=== PATIENT | male | born 1965 | race Caucasian/White ===

== ENCOUNTER 2019-07-05 10:56 | Emergency (ER) | payer BC, OTHER ==
[~2019-07-05] VITALS: Ht 175.3 cm; Wt 53.1 kg
--- OUTSIDE RECORDS SUMMARY | 2019-07-05 10:59 | XMS REPORT ---
[facility] Address Unknown Phone Unavailable Care Team Providers Care Urinalysis Technician Name Role Phone Unavailable Unavailable Payers Payer Name Policy Type Policy Number Effective Date Expiration Date Problems This patient has no known problems. Allergies, Adverse Reactions, Alerts Allergy Name Allergy Type Status Severity Reaction(s) Onset Date Inactive Date Treating Clinician Comments No Known Allergies DA Active U 2016-07-12 00:00:00 Medications This patient has no known medications. Results Test Description Test Time Test Comments Text Results Atomic Results Result Comments - CT ABD PELVIS W WO CONT 2019-04-23 15:27:00 Name: KVNG KABA [facility] : 1965 Age/S: 53 / M [address] [facility] Unit #: [id number] Loc: [place] [address] Phys: Apolinar Dumont MD Acct: [id number] Dis Date: Status: REG CLI PHONE #: [phone] Exam Date: 04/23/2019 1030 FAX #: [phone] Reason: CONSTIPATION EXAMS: CPT CODE: [id number] CT ABD PELVIS W WO CONT [id number] REASON FOR EXAM: CONSTIPATION EXAM ORDER DATE: 04/23/2019 9:46 AM Ordering M.D.: Apolinar Dumont MD PROCEDURE: - CT ABD PELVIS W WO CONT pre and postcontrast axial CT images were acquired through the abdomen/pelvis at 5 mm intervals. Sagittal and coronal reformatted images were generated. Automated exposure control was utilized for this reduction. Phases of contrast: venous and delayed COMPARISON: None FINDINGS: Visualized thorax: Pectus excavatum. Lung bases are clear. Hepatobiliary system: Normal Pancreas: Normal Spleen: Normal Adrenal glands: Normal Genitourinary system: There are stones in the bilateral kidneys, more numerous on the right side. The largest stone is located in the upper pole of the right kidney and measures up to 5 cm in size (2/33). No evidence of hydronephrosis or hydroureter or ureterolithiasis. Symmetric renal enhancement with no perinephric or periureteral inflammatory changes. Otherwise normal Gastrointestinal tract and appendix: Heavy colonic stool burden compatible with constipation Abdominal vascular structures: Normal Peritoneum and retroperitoneum: No free fluid or free air. No omental or mesenteric masses. No abnormal lymph nodes. Musculoskeletal structures and abdominal wall: Normal IMPRESSION: PAGE 1 Signed Report (CONTINUED) Name: KVNG KABA [facility] : 1965 Age/S: 53 / M [address] [facility]: [id number] [place]: [place] [address] Phys: Apolinar Dumont MD Acct: [id number] Dis Date: Status: REG CLI PHONE #: [phone] Exam Date: 04/23/2019 1030 FAX #: [phone] Reason: CONSTIPATION EXAMS: CPT CODE: [id number] CT ABD PELVIS W WO CONT 12026 <Continued> Heavy colonic stool burden compatible with constipation. Nonobstructing stones in the bilateral kidneys, more numerous on the right side. Location: [facility] at 1527 Reported and signed by: Sunil Colon MD CC: Apolinar Dumont MD Technologist:RT Chandler(R),CT CTDI: DLP: Trnscb Date/Time: 04/23/2019 (1527) [email or web address] Orig Print D/T: S: 04/23/2019 (1530) PAGE 2 Signed Report
[2019-07-05] MEDS ORDERED: SODIUM CHLORIDE 0.9% 1000ML 1,000 ML IV STA (11:13)
[2019-07-05] MEDS ORDERED: KETOROLAC TROMETHAMINE 30 MG/ML VIAL IV STA (11:13)
[2019-07-05 11:51] LABS: BASOPHILS % 0.6 % (0.0-1.0); EOSINOPHILS % 0.5 % (0.0-6.0); HEMATOCRIT 42.3 % (38.2-49.6); HEMOGLOBIN 13.9 g/dL (14.0-18.0); LYMPHOCYTES # (AUTO) 1.1 (1.0-3.2); LYMPHOCYTES % 17.4 % (18.0-39.1); MEAN CORPUSCULAR HEMOGLOBIN 30.2 pg (28-32); MEAN CORPUSCULAR HGB CONC 32.9 g/dL (31-35); MONOCYTES # (AUTO) 0.4 (0.2-0.8); MONOCYTES % 6.1 % (4.4-11.3); NEUTROPHILS # (AUTO) 4.8 (2.1-6.9); NEUTROPHILS % 75.1 % (38.7-80.0); PLATELET COUNT 185 x10e3/uL (140-360); RED CELL DISTRIBUTION WIDTH 12.8 % (11.7-14.4)
[2019-07-05 12:14] LABS: ALANINE AMINOTRANSFERASE 15 IU/L (0-55); ALBUMIN 4.1 g/dL (3.5-5.0); ALBUMIN/GLOBULIN RATIO 1.5 (0.8-2.0); ALKALINE PHOSPHATASE 64 IU/L (40-150); ANION GAP 13.8 mmol/L (8-16); BLOOD UREA NITROGEN 18 mg/dL (7-26); BUN/CREATININE RATIO 21 (6-25); CALCIUM 9.3 mg/dL (8.4-10.2); CARBON DIOXIDE 28 mmol/L (22-29); CHLORIDE 104 mmol/L (98-107); CREATININE, SERUM 0.84 mg/dL (0.72-1.25); EST GLOMERULAR FILTRATION RATE > 60 ML/MIN (60-); GLUCOSE 93 mg/dL (74-118); POTASSIUM 3.8 mmol/L (3.5-5.1); SODIUM 142 mmol/L (136-145)
[2019-07-05 12:39] LABS: COLOR,URINE YELLOW (YELLOW)
[2019-07-05 12:40] LABS: BILIRUBIN,URINE NEGATIVE (NEGATIVE); CLARITY,URINE CLEAR (CLEAR); KETONES,URINE NEGATIVE (NEGATIVE); LEUKOCYTE ESTERASE ,URINE NEGATIVE (NEGATIVE); NITRITE,URINE NEGATIVE (NEGATIVE); PROTEIN,URINE DIPSTICK NEGATIVE (NEGATIVE); RBC,URINE 0-5 /HPF (0-5); URINE UROBILINOGEN 0.2 mg/dL (0.2 - 1); WBC,URINE (MAN) 0-5 /HPF (0-5)
[2019-07-05 12:41] LABS: BACTERIA,URINE RARE /HPF; EPITHELIAL CELLS,URINE FEW /LPF
--- NOTE | 2019-07-05 13:23 | Diagnostic Imaging Report ---
INDICATION: Left flank pain. COMPARISON: None. TECHNIQUE: CT of the Abdomen and Pelvis WITHOUT intravenous contrast. Enteric contrast was not used. The exam was performed according to our department dose-optimization protocol, which includes automated exposure control, adjustments of mA and kV according to patient size. Iterative reconstructions are also sometimes employed. FINDINGS: In the right kidney there are 2 small calyceal stones. No left kidney stones are demonstrated and no ureteral stones. No perinephric stranding or hydronephrosis. Kidneys are normal in size and there is no gross renal mass. Bladder is partly collapsed and therefore not well evaluated. Prostate gland mildly enlarged with coarse calcifications of the central gland. There is increase in stool burden throughout the colon. No bowel obstruction demonstrated. No evidence of bowel infection. Liver, gallbladder, pancreas, spleen, and adrenal glands are unremarkable. Left iliac subcentimeter sclerotic lesion is probably benign. No definite suspicious osseous lesion. Lower thorax unremarkable IMPRESSION: Small right kidney stones. No obstructing urolithiasis. Constipation. Signed by: Shade Pathak MD on 07/05/2019 1:20 PM
== END 2019-07-05 14:11 | disposition home or self-care (01) ==
LOC: ER 10:56
DX: K59.00 Constipation, unspecified (principal); M54.5 Low back pain
CPT/HCPCS: 36415; 74176; 80053; 81001; 85025; 87086; 99284; J1885; J7030

== ENCOUNTER → 2020-03-10 | Day surgery (SDC) | payer BC, OTHER ==
[~2020-03-10] VITALS: Ht 180.3 cm; Wt 68.0 kg
[~2020-03-10] MED LIST: FENTANYL CITRATE/PF 100MCG/2 ML INJ ONE; LIDOCAINE HCL 2% LOCAL INJ 5 ML SDV VIAL INJ ONE; MIDAZOLAM HCL 2 MG/2 ML VIAL ONE; MIRALAX17 GM PO; PROPOFOL IV EMULSION 10 MG/ML 20 ML VIAL ONE; STOOL SOFTENER100 MG
[2020-03-10 07:45] VITALS: BP 120/74
== END | disposition home or self-care (01) ==
LOC: OR 05:32
PROVIDERS: ATTEND Internal Medicine Gastroenterology
DX: R63.4 Abnormal weight loss (principal); K29.50 Unspecified chronic gastritis without bleeding; K20.90 Esophagitis, unspecified without bleeding; K44.9 Diaphragmatic hernia without obstruction or gangrene; I45.10 Unspecified right bundle-branch block; Z01.810 Encounter for preprocedural cardiovascular examination; Z01.812 Encounter for preprocedural laboratory examination; Z11.59 Encounter for screening for other viral diseases; Z68.1 Body mass index [BMI] 19.9 or less, adult
CPT/HCPCS: 43239; 93005; J2001; J2250; J2704; J3010; U0002

== ENCOUNTER 2023-09-10 20:27 | Emergency (ER) | payer SELFPAY ==
[~2023-09-10] VITALS: Ht 175.3 cm; Wt 54.4 kg
[~2023-09-10 20:27] MED LIST changes: -FENTANYL CITRATE/PF 100MCG/2 ML INJ ONE; -LIDOCAINE HCL 2% LOCAL INJ 5 ML SDV VIAL INJ ONE; -MIDAZOLAM HCL 2 MG/2 ML VIAL ONE; -PROPOFOL IV EMULSION 10 MG/ML 20 ML VIAL ONE; +SODIUM CHLORIDE 0.9% 1000 ML BAG ONE
[2023-09-10] MEDS: SODIUM CHLORIDE 0.9% 1000ML 1,000 ML IV STA (20:49)
[2023-09-10 20:56] LABS: BASOPHILS # (AUTO) 0.1 (0.0-0.1); BASOPHILS % 0.9 % (0.0-1.0); EOSINOPHILS # (AUTO) 0.1 (0.0-0.4); EOSINOPHILS % 1.6 % (0.0-6.0); HEMATOCRIT 38.9 % (38.2-49.6); HEMOGLOBIN 13.7 g/dL (14.0-18.0); LYMPHOCYTES % 26.8 % (18.0-39.1); MEAN CORPUSCULAR HGB CONC 35.2 g/dL (31-35); MONOCYTES # (AUTO) 0.4 (0.2-0.8); MONOCYTES % 5.8 % (4.4-11.3); NEUTROPHILS # (AUTO) 4.9 (2.1-6.9); NEUTROPHILS % 64.8 % (38.7-80.0); PLATELET COUNT 186 x10e3/uL (140-360); RED BLOOD COUNT 4.42 x10e6/uL (4.3-5.7); RED CELL DISTRIBUTION WIDTH 12.5 % (11.7-14.4); WHITE BLOOD COUNT 7.53 x10e3/uL (4.8-10.8)
[2023-09-10] MEDS ORDERED: IOPAMIDOL 370 MG/ML 100 ML INFUS..BTL INJ ONE ×2 (21:00→21:33)
[2023-09-10] MEDS ORDERED: Sodium Chloride 0.9% 50ML Bag ONE ×2 (21:00→21:33)
[2023-09-10 21:03] LABS: BILIRUBIN,URINE NEGATIVE (NEGATIVE); CLARITY,URINE SL CLOUDY (CLEAR); COLOR,URINE YELLOW (YELLOW); GLUCOSE, URINE NEGATIVE (NEGATIVE); KETONES,URINE TRACE (NEGATIVE); LEUKOCYTE ESTERASE ,URINE NEGATIVE (NEGATIVE); NITRITE,URINE NEGATIVE (NEGATIVE); PH,URINE 6 (5 - 7); PROTEIN,URINE DIPSTICK NEGATIVE (NEGATIVE); URINE UROBILINOGEN 1 mg/dL (0.2 - 1)
[2023-09-10 21:15] LABS: ALANINE AMINOTRANSFERASE 14 IU/L (0-55); ALBUMIN/GLOBULIN RATIO 1.3 (0.8-2.0); ALKALINE PHOSPHATASE 64 IU/L (40-150); ANION GAP 17.1 mmol/L (8-16); BILIRUBIN,TOTAL 0.8 mg/dL (0.2-1.2); BLOOD UREA NITROGEN 24 mg/dL (7-26); BUN/CREATININE RATIO 27 (6-25); CARBON DIOXIDE 21 mmol/L (22-29); CHLORIDE 107 mmol/L (98-107); CREATINE KINASE 124 IU/L (30-200); EST GLOMERULAR FILTRATION RATE 98 ML/MIN (>=60); GLUCOSE 94 mg/dL (74-118); POTASSIUM 4.1 mmol/L (3.5-5.1); SODIUM 141 mmol/L (136-145); TOTAL PROTEIN 7.2 g/dL (6.5-8.1)
[2023-09-10 21:18] LABS: RBC,URINE 0-5 /HPF (0-5)
[2023-09-10 21:19] LABS: MUCUS,URINE FEW (RARE)
[2023-09-10 21:22] LABS: TROPONIN I < 0.001 ng/mL (0-0.300)
[2023-09-10 23:42] VITALS: BP 122/66; PULSE 60; RESP 17; TEMP 98.2; O2SAT 100
[2023-09-10 23:44] LABS: EOSINOPHILS % (MANUAL) 4 % (0-7); LYMPHOCYTES % (MANUAL) 26 % (19-48); MONOCYTES % (MANUAL) 5 % (3.4-9.0); NEUTROPHILS % (MANUAL) 65 % (40-74)
[2023-09-10 23:46] LABS: PLATELET MORPHOLOGY COMMENT NORMAL; RBC MORPHOLOGY COMMENT NORMAL
[2023-09-10 23:47] LABS: PLATELET ESTIMATE ADEQUATE
== END 2023-09-10 23:45 | disposition home or self-care (01) ==
LOC: ER 20:33
DX: R10.9 Unspecified abdominal pain (principal); K59.00 Constipation, unspecified; D18.09 Hemangioma of other sites; H91.3 Deaf nonspeaking, not elsewhere classified; K76.0 Fatty (change of) liver, not elsewhere classified; R94.31 Abnormal electrocardiogram [ECG] [EKG]
CPT/HCPCS: 36415; 74177; 80053; 81001; 82550; 83690; 84484; 85025; 93005; 99284; Q9967; J7030

== ENCOUNTER 2024-01-04 13:53 | Emergency (ER) | payer SELFPAY ==
[~2024-01-04] VITALS: Ht 175.3 cm; Wt 54.4 kg
[~2024-01-04 13:53] MED LIST changes: -SODIUM CHLORIDE 0.9% 1000 ML BAG ONE
[2024-01-04 14:27] LABS: BASOPHILS # (AUTO) 0.1 (0.0-0.1); BASOPHILS % 0.8 % (0.0-1.0); EOSINOPHILS # (AUTO) 0.1 (0.0-0.4); EOSINOPHILS % 0.8 % (0.0-6.0); HEMATOCRIT 43.9 % (38.2-49.6); HEMOGLOBIN 14.9 g/dL (14.0-18.0); LYMPHOCYTES # (AUTO) 1.4 (1.0-3.2); LYMPHOCYTES % 22.7 % (18.0-39.1); MEAN CORPUSCULAR HEMOGLOBIN 30.8 pg (28-32); MEAN CORPUSCULAR HGB CONC 33.9 g/dL (31-35); MEAN CORPUSCULAR VOLUME 90.7 fL (81-99); MONOCYTES # (AUTO) 0.5 (0.2-0.8); MONOCYTES % 7.4 % (4.4-11.3); NEUTROPHILS # (AUTO) 4.3 (2.1-6.9); NEUTROPHILS % 68.1 % (38.7-80.0); PLATELET COUNT 146 x10e3/uL (140-360); RED BLOOD COUNT 4.84 x10e6/uL (4.3-5.7); RED CELL DISTRIBUTION WIDTH 12.7 % (11.7-14.4); WHITE BLOOD COUNT 6.35 x10e3/uL (4.8-10.8)
[2024-01-04] MEDS: Morphine 4mg INJECTION 4 MG/ML INJ IV ONE (14:35)
[2024-01-04] MEDS: ONDANSETRON HCL INJ 2MG/ML 2ML 2 MG/ML VIAL IV STA (14:35)
[2024-01-04] MEDS: SODIUM CHLORIDE 0.9% 1000ML 1,000 ML IV ONE (14:36)
[2024-01-04 14:41] LABS: ALBUMIN 4.1 g/dL (3.5-5.0); ALBUMIN/GLOBULIN RATIO 1.3 (0.8-2.0); CALCIUM 9.3 mg/dL (8.4-10.2); CREATININE, SERUM 0.8 mg/dL (0.72-1.25); TOTAL PROTEIN 7.2 g/dL (6.5-8.1)
[2024-01-04] MEDS ORDERED: IOPAMIDOL 370 MG/ML 100 ML INFUS..BTL INJ ONE (15:01)
[2024-01-04 16:35] LABS: CLARITY,URINE CLEAR (CLEAR); COLOR,URINE YELLOW (YELLOW); LEUKOCYTE ESTERASE ,URINE NEGATIVE (NEGATIVE); NITRITE,URINE NEGATIVE (NEGATIVE); PH,URINE 7 (5 - 7)
[2024-01-04 16:36] LABS: BILIRUBIN,URINE NEGATIVE (NEGATIVE); GLUCOSE, URINE NEGATIVE (NEGATIVE); KETONES,URINE NEGATIVE (NEGATIVE); PROTEIN,URINE DIPSTICK NEGATIVE (NEGATIVE); URINE UROBILINOGEN 1 mg/dL (0.2 - 1)
[2024-01-04 16:47] LABS: MUCUS,URINE FEW (RARE); RBC,URINE 0-5 /HPF (0-5)
[2024-01-04 18:01] VITALS: PULSE 58; RESP 18; TEMP 98.5; O2SAT 100
== END 2024-01-04 18:24 | disposition home or self-care (01) ==
LOC: ER 13:59
DX: R10.31 Right lower quadrant pain (principal); K40.90 Unilateral inguinal hernia, without obstruction or gangrene, not specified as recurrent; N42.9 Disorder of prostate, unspecified; K76.0 Fatty (change of) liver, not elsewhere classified; H91.3 Deaf nonspeaking, not elsewhere classified
CPT/HCPCS: 36415; 74177; 80053; 81001; 83690; 85025; 99284; J2270; J2405; J7030; Q9967

== ENCOUNTER → 2024-07-02 | Day surgery (SDC) | payer BC, MEDICARE ==
[2024-06-29 13:57] LABS: BASOPHILS # (AUTO) 0.1 (0.0-0.1); BASOPHILS % 0.9 % (0.0-1.0); EOSINOPHILS # (AUTO) 0.1 (0.0-0.4); EOSINOPHILS % 0.9 % (0.0-6.0); HEMATOCRIT 44.8 % (38.2-49.6); HEMOGLOBIN 15.2 g/dL (14.0-18.0); LYMPHOCYTES # (AUTO) 1.5 (1.0-3.2); LYMPHOCYTES % 27.4 % (18.0-39.1); MEAN CORPUSCULAR HEMOGLOBIN 30.9 pg (28-32); MEAN CORPUSCULAR HGB CONC 33.9 g/dL (31-35); MEAN CORPUSCULAR VOLUME 91.1 fL (81-99); MONOCYTES # (AUTO) 0.5 (0.2-0.8); MONOCYTES % 9.3 % (4.4-11.3); NEUTROPHILS # (AUTO) 3.4 (2.1-6.9); NEUTROPHILS % 61.1 % (38.7-80.0); PLATELET COUNT 162 x10e3/uL (140-360); RED BLOOD COUNT 4.92 x10e6/uL (4.3-5.7); RED CELL DISTRIBUTION WIDTH 12.4 % (11.7-14.4); WHITE BLOOD COUNT 5.59 x10e3/uL (4.8-10.8)
[~2024-07-02] MED LIST changes: +DEXAMETHASONE SOD PHOS INJ 4 MG/ML SDV ONE; +EPHEDRINE SULFATE INJ 50 MG/ML VIAL ONE; +FENTANYL CITRATE/PF 100MCG/2 ML INJ ONE; +GLYCOPYRROLATE INJ 0.2 MG/ML VIAL ONE; +HYDROCODON-ACE1 EA11 PO; +LIDOCAINE HCL 2% LOCAL INJ 5 ML SDV VIAL INJ ONE; +ONDANSETRON HCL INJ 2MG/ML 2ML 2 MG/ML VIAL ONE; +PROPOFOL IV EMULSION 10 MG/ML 20 ML VIAL ONE; +SEVOFLURANE INHAL SOLN 250 ML PEN BTL ONE; +[UNRECOGNIZED DRUG - OTHER] PO
[2024-07-02] MEDS: LACTATED RINGER'S 1,000 ML ONE (11:53)
[2024-07-02] MEDS: CEFAZOLIN SODIUM 2 GM ONE (11:53)
[2024-07-02 13:11] LABS: ALBUMIN 3.8 g/dL (3.5-5.0); BILIRUBIN,DIRECT 0.5 mg/dL (0.0-0.5); BILIRUBIN,TOTAL 1.4 mg/dL (0.2-1.2); TOTAL PROTEIN 6.6 g/dL (6.5-8.1)
[2024-07-02 13:41] VITALS: TEMP 97
[2024-07-02 14:30] VITALS: BP 115/68; PULSE 70; RESP 16; O2SAT 98
[2024-07-02 14:31] LABS: ANION GAP 14.2 mmol/L (8-16); CALCIUM 8.9 mg/dL (8.4-10.2); CREATININE, SERUM 0.84 mg/dL (0.72-1.25); POTASSIUM 4.2 mmol/L (3.5-5.1)
[2024-07-02] MEDS: HYDROCODONE/APAP 5MG-325MG TAB ONE (14:45)
== END | disposition home or self-care (01) ==
LOC: OR 11:08
PROVIDERS: ATTEND Surgery
DX: K40.90 Unilateral inguinal hernia, without obstruction or gangrene, not specified as recurrent (principal); R00.1 Bradycardia, unspecified; M54.50 Low back pain, unspecified; H91.90 Unspecified hearing loss, unspecified ear; E66.3 Overweight; Z01.810 Encounter for preprocedural cardiovascular examination; Z01.812 Encounter for preprocedural laboratory examination
CPT/HCPCS: 36415 ×2; 49505; 80048; 80076; 85025; 93005; C1781; J1100; J2003; J2405; J2704; J3010; J7121

== ENCOUNTER 2024-07-14 14:10 | Emergency (ER) | payer MEDICARE ==
[~2024-07-14] VITALS: Ht 175.3 cm; Wt 54.0 kg
[~2024-07-14 14:10] MED LIST changes: -DEXAMETHASONE SOD PHOS INJ 4 MG/ML SDV ONE; -EPHEDRINE SULFATE INJ 50 MG/ML VIAL ONE; -FENTANYL CITRATE/PF 100MCG/2 ML INJ ONE; -GLYCOPYRROLATE INJ 0.2 MG/ML VIAL ONE; -LIDOCAINE HCL 2% LOCAL INJ 5 ML SDV VIAL INJ ONE; -ONDANSETRON HCL INJ 2MG/ML 2ML 2 MG/ML VIAL ONE; -PROPOFOL IV EMULSION 10 MG/ML 20 ML VIAL ONE; -SEVOFLURANE INHAL SOLN 250 ML PEN BTL ONE
[2024-07-14 15:17] VITALS: PULSE 72; RESP 18; TEMP 98.4; O2SAT 99
[2024-07-14] MEDS: ORPHENADRINE CITRATE 30 MG/ML VIAL IM ONE (15:45)
[2024-07-14] MEDS: KETOROLAC TROMETHAMINE 30 MG/ML VIAL IM STA (15:47)
[2024-07-14] MEDS ORDERED: METHOCARBAMOL750 MG PO (15:51)
== END 2024-07-14 16:07 | disposition home or self-care (01) ==
LOC: ER 15:52
DX: M54.50 Low back pain, unspecified (principal); M62.830 Muscle spasm of back; H91.3 Deaf nonspeaking, not elsewhere classified; Z98.890 Other specified postprocedural states; F17.210 Nicotine dependence, cigarettes, uncomplicated
CPT/HCPCS: 99283; J1885; J2360

== ENCOUNTER 2024-07-23 03:41 | Emergency (ER) | payer MEDICARE ==
[~2024-07-23] VITALS: Ht 175.3 cm; Wt 54.0 kg
[~2024-07-23 03:41] MED LIST changes: +METHOCARBAMOL750 MG PO
[2024-07-23] MEDS ORDERED: FLOMAX0.4 MG PO (05:08)
[2024-07-23 05:38] VITALS: PULSE 74; RESP 18; TEMP 98.1; O2SAT 98
[2024-07-23] MEDS: LIDOCAINE JELLY 2% 10ML URO-JET TOP ONE (05:38)
== END 2024-07-23 05:50 | disposition home or self-care (01) ==
LOC: ER 04:35
DX: N40.1 Benign prostatic hyperplasia with lower urinary tract symptoms (principal); R33.8 Other retention of urine; R10.30 Lower abdominal pain, unspecified; H91.3 Deaf nonspeaking, not elsewhere classified
CPT/HCPCS: 51700; 87086; 99283

== ENCOUNTER 2024-11-03 17:38 | Emergency (ER) | payer MEDICARE ==
[~2024-11-03] VITALS: Ht 175.3 cm; Wt 54.0 kg
[~2024-11-03 17:38] MED LIST changes: +FLOMAX0.4 MG PO
[2024-11-03 18:13] VITALS: PULSE 59; RESP 18; TEMP 98.5
[2024-11-03 18:21] LABS: BASOPHILS # (AUTO) 0.1 (0.0-0.1); BASOPHILS % 1.1 % (0.0-1.0); EOSINOPHILS # (AUTO) 0.1 (0.0-0.4); EOSINOPHILS % 1.4 % (0.0-6.0); HEMATOCRIT 42.4 % (38.2-49.6); HEMOGLOBIN 14.4 g/dL (14.0-18.0); LYMPHOCYTES # (AUTO) 1.7 (1.0-3.2); LYMPHOCYTES % 31.5 % (18.0-39.1); MEAN CORPUSCULAR HEMOGLOBIN 29.3 pg (28-32); MEAN CORPUSCULAR VOLUME 86.2 fL (81-99); MONOCYTES # (AUTO) 0.4 (0.2-0.8); MONOCYTES % 7.2 % (4.4-11.3); NEUTROPHILS # (AUTO) 3.2 (2.1-6.9); NEUTROPHILS % 58.6 % (38.7-80.0); PLATELET COUNT 184 x10e3/uL (140-360); RED BLOOD COUNT 4.92 x10e6/uL (4.3-5.7); WHITE BLOOD COUNT 5.53 x10e3/uL (4.8-10.8)
[2024-11-03 18:24] LABS: BILIRUBIN,URINE NEGATIVE (NEGATIVE); CLARITY,URINE HAZY (CLEAR); COLOR,URINE YELLOW (YELLOW); GLUCOSE, URINE NEGATIVE (NEGATIVE); KETONES,URINE NEGATIVE (NEGATIVE); LEUKOCYTE ESTERASE ,URINE TRACE (NEGATIVE); NITRITE,URINE POSITIVE (NEGATIVE); PH,URINE 6 (5 - 7); PROTEIN,URINE DIPSTICK 2+ (NEGATIVE); URINE UROBILINOGEN 1 mg/dL (0.2 - 1)
[2024-11-03] MEDS: ONDANSETRON HCL INJ 2MG/ML 2ML 2 MG/ML VIAL IV STA (18:31)
[2024-11-03 18:33] LABS: ALBUMIN/GLOBULIN RATIO 1.1 (0.8-2.0); ANION GAP 15.1 mmol/L (8-16); BILIRUBIN,TOTAL 1.3 mg/dL (0.2-1.2); CALCIUM 8.9 mg/dL (8.4-10.2); CREATININE, SERUM 0.86 mg/dL (0.72-1.25); POTASSIUM 4.1 mmol/L (3.5-5.1); TOTAL PROTEIN 7.6 g/dL (6.5-8.1)
[2024-11-03] MEDS: KETOROLAC TROMETHAMINE 30 MG/ML VIAL IV STA (18:33)
[2024-11-03] MEDS: SODIUM CHLORIDE 0.9% 1000ML 1,000 ML IV ONE (18:34)
[2024-11-03 18:35] LABS: BACTERIA,URINE MODERATE /HPF; CALCIUM OXALATE CRYSTALS,UR RARE (FEW); WBC,URINE (MAN) 0-5 /HPF (0-5)
[2024-11-03 18:37] LABS: URIC ACID CRYSTALS,URINE MODERATE
[2024-11-03] MEDS ORDERED: SODIUM CHLORIDE 0.9% 100 ML ONE (18:38)
[2024-11-03] MEDS ORDERED: IOPAMIDOL 370 MG/ML 100 ML INFUS..BTL INJ ONE (18:38)
[2024-11-03] MEDS ORDERED: CEFDINIR300 MG PO (19:47)
[2024-11-03] MEDS ORDERED: PYRIDIUM200 MG PO (19:47)
[2024-11-03 19:57] VITALS: BP 132/76; PULSE 65; RESP 17; TEMP 98.3; O2SAT 94
== END 2024-11-03 19:54 | disposition home or self-care (01) ==
LOC: ER 18:15
DX: R10.32 Left lower quadrant pain (principal); N39.0 Urinary tract infection, site not specified; H91.3 Deaf nonspeaking, not elsewhere classified
CPT/HCPCS: 36415; 74177; 80053; 81001; 85025; 87086; 87186; 99284; J1885; J2405; J7030; J7050; Q9967

== ENCOUNTER 2024-11-05 17:25 | Emergency (ER) | payer MEDICARE ==
[~2024-11-05] VITALS: Ht 175.3 cm; Wt 54.0 kg
[~2024-11-05 17:25] MED LIST changes: +CEFDINIR300 MG PO; +PYRIDIUM200 MG PO
[2024-11-05 17:44] VITALS: PULSE 79; RESP 16; TEMP 97.2; O2SAT 98
[2024-11-05] MEDS ORDERED: ONDANSETRON ODT4 MG PO (17:50)
[2024-11-05] MEDS ORDERED: ONDANSETRON HCL 4 MG ORAL DISINTEGRATING TAB PO ONE (18:00)
== END 2024-11-05 17:58 | disposition home or self-care (01) ==
LOC: ER 17:51
DX: R11.0 Nausea (principal); N39.0 Urinary tract infection, site not specified; H91.3 Deaf nonspeaking, not elsewhere classified
CPT/HCPCS: 99283; Q0162

== ENCOUNTER 2024-11-17 05:49 | Emergency (ER) | payer MEDICARE ==
[~2024-11-17] VITALS: Ht 175.3 cm; Wt 54.0 kg
[~2024-11-17 05:49] MED LIST changes: +ONDANSETRON ODT4 MG PO
[2024-11-17 05:59] VITALS: PULSE 57; RESP 16; TEMP 97.5
[2024-11-17] MEDS ORDERED: PYRIDIUM200 MG PO (06:55)
[2024-11-17] MEDS ORDERED: BACTRIM DS TAB1 EACH PO (06:55)
[2024-11-17 07:00] VITALS: BP 152/69; PULSE 60; RESP 18; TEMP 97.9; O2SAT 99
== END 2024-11-17 07:05 | disposition home or self-care (01) ==
LOC: ER 06:13
DX: Z46.6 Encounter for fitting and adjustment of urinary device (principal); R10.30 Lower abdominal pain, unspecified; H91.3 Deaf nonspeaking, not elsewhere classified
CPT/HCPCS: 51700; 87086; 99284

== ENCOUNTER 2024-12-05 12:46 | Emergency (ER) | payer MEDICARE ==
[~2024-12-05] VITALS: Ht 175.3 cm; Wt 54.0 kg
[~2024-12-05 12:46] MED LIST changes: +BACTRIM DS TAB1 EACH PO
[2024-12-05 13:13] VITALS: PULSE 74; RESP 18; TEMP 98.4
[2024-12-05] MEDS: LIDOCAINE JELLY 2% 10ML URO-JET TOP ONE (14:44)
[2024-12-05 15:13] VITALS: BP 128/76; PULSE 74; RESP 12; O2SAT 100
== END 2024-12-05 15:14 | disposition home or self-care (01) ==
LOC: ER 13:22
DX: Z46.6 Encounter for fitting and adjustment of urinary device (principal); N48.89 Other specified disorders of penis; H91.3 Deaf nonspeaking, not elsewhere classified
CPT/HCPCS: 99283

== ENCOUNTER 2024-12-12 09:27 | Emergency (ER) | payer MEDICARE ==
[~2024-12-12] VITALS: Ht 175.3 cm; Wt 54.0 kg
[2024-12-12 09:52] VITALS: RESP 18; TEMP 97.6
[2024-12-12 11:12] VITALS: PULSE 60; O2SAT 96
== END 2024-12-12 11:21 | disposition home or self-care (01) ==
LOC: ER 10:09
DX: Z46.6 Encounter for fitting and adjustment of urinary device (principal); R19.7 Diarrhea, unspecified; H91.3 Deaf nonspeaking, not elsewhere classified
CPT/HCPCS: 87086; 87186; 99283

== ENCOUNTER 2024-12-27 18:29 | Emergency (ER) | payer MEDICARE ==
[~2024-12-27] VITALS: Ht 175.3 cm; Wt 54.0 kg
[2024-12-27 18:50] VITALS: PULSE 73; RESP 16; TEMP 98
[2024-12-27] MEDS ORDERED: CIPRO500 MG PO (20:02)
[2024-12-27 20:13] LABS: LEUKOCYTE ESTERASE ,URINE MODERATE (NEGATIVE); PROTEIN,URINE DIPSTICK 2+ (NEGATIVE); URINE UROBILINOGEN 0.2 mg/dL (0.2 - 1)
[2024-12-27] MEDS: KETOROLAC TROMETHAMINE 60 MG/2 ML VIAL IM STA (20:38)
[2024-12-27 21:21] VITALS: BP 133/86; PULSE 80; RESP 17; TEMP 97.9; O2SAT 98
== END 2024-12-27 21:06 | disposition home or self-care (01) ==
LOC: ER 18:43
DX: T83.031A Leakage of indwelling urethral catheter, initial encounter (principal); N39.0 Urinary tract infection, site not specified; H91.90 Unspecified hearing loss, unspecified ear; N40.0 Benign prostatic hyperplasia without lower urinary tract symptoms
CPT/HCPCS: 51700; 81001; 87086; 99282; J1885

== ENCOUNTER 2025-01-12 22:48 | Emergency (ER) | payer MEDICARE ==
[~2025-01-12] VITALS: Ht 175.3 cm; Wt 54.0 kg
[~2025-01-12 22:48] MED LIST changes: +CIPRO500 MG PO
[2025-01-13] MEDS ORDERED: KETOROLAC TROME10 MG PO (00:16)
[2025-01-13] MEDS ORDERED: FLOMAX0.4 MG PO (00:16)
[2025-01-13] MEDS: KETOROLAC TROMETHAMINE 60 MG/2 ML VIAL IM ONE (00:39)
[2025-01-13 00:48] VITALS: PULSE 61; RESP 16; TEMP 98; O2SAT 97
== END 2025-01-13 00:53 | disposition home or self-care (01) ==
LOC: ER 23:02
DX: Z46.6 Encounter for fitting and adjustment of urinary device (principal); R42 Dizziness and giddiness; H91.3 Deaf nonspeaking, not elsewhere classified
CPT/HCPCS: 51702; 99284; J1885; 51700

== ENCOUNTER 2025-02-24 17:03 | Emergency (ER) | payer MEDICARE ==
[~2025-02-24] VITALS: Ht 175.3 cm; Wt 54.0 kg
[~2025-02-24 17:03] MED LIST changes: +KETOROLAC TROME10 MG PO
[2025-02-24 17:27] VITALS: TEMP 97.5
[2025-02-24] MEDS: KETOROLAC TROMETHAMINE 60 MG/2 ML VIAL IM ONE (19:09)
[2025-02-24 19:24] LABS: LEUKOCYTE ESTERASE ,URINE MODERATE (NEGATIVE); PROTEIN,URINE DIPSTICK NEGATIVE (NEGATIVE); URINE UROBILINOGEN 0.2 mg/dL (0.2 - 1)
[2025-02-24 19:30] VITALS: PULSE 85; RESP 20
[2025-02-24 20:01] LABS: WBC,URINE (MAN) >50 /HPF (0-5)
[2025-02-24] MEDS ORDERED: FLOMAX0.4 MG PO (20:29)
[2025-02-24] MEDS ORDERED: KETOROLAC TROME10 MG PEG (20:29)
[2025-02-24 20:41] VITALS: BP 116/77; PULSE 57; RESP 16; TEMP 97.5; O2SAT 97
== END 2025-02-24 20:39 | disposition home or self-care (01) ==
LOC: ER 18:14
DX: R10.9 Unspecified abdominal pain (principal); N39.0 Urinary tract infection, site not specified; N20.0 Calculus of kidney; H91.3 Deaf nonspeaking, not elsewhere classified
CPT/HCPCS: 74176; 81001; 87086; 99283; J1885